=== PATIENT | male | born 1950 | race Caucasian/White ===

== ENCOUNTER 2025-05-02 13:09 | Emergency (ER) | payer MEDICARE, OTHER ==
[2025-05-02 14:17] LABS: Platelet Count 78 10x3/uL (150-450)
[2025-05-02 14:18] LABS: #Basophils 0.03 10x3/uL (0.0-0.2); #Eosinophils Less than 0.03 10x3/uL (0.0-0.5); #Monocytes 0.38 10x3/uL (0.0-1.1); #Neutrophils 10.96 10x3/uL (1.5-8.4); %Basophils 0.2 % (0.0-2.0); %Eosinophils 0.0 % (0.0-6.0); %Lymphocytes 5.1 % (18.0-47.0); %Monocytes 3.2 % (0.0-10.0); %Neutrophils 91.1 % (40.0-75.0); Hematocrit 35.6 % (38.8-50.0); Hemoglobin 11.3 g/dL (13.5-17.5); Mean Corpuscular Hemoglobin 32.0 pg (27.0-33.0); Mean Corpuscular Volume 100.8 fL (81.2-95.1); Red Blood Cell (RBC) Count 3.53 10x6/uL (4.32-5.72); White Blood Cell (WBC) Count 12.03 10x3/uL (3.5-10.5)
[2025-05-02 14:23] LABS: ALT (SGPT) 15 U/L (Less than 45); AST (SGOT) 29 U/L (11-34); Albumin 4.0 g/dL (3.1-4.5); Alkaline Phosphatase 50 U/L (40-110); Anion Gap 12 mmol/L (10-20); BUN (Urea Nitrogen) 9 mg/dL (8.4-25.7); Bilirubin, Total 0.6 mg/dL (0.3-1.2); Calc. Creatinine Clearance 0 mL/min (70-130); Calcium 8.8 mg/dL (7.8-10.44); Carbon Dioxide 32 mmol/L (23-31); Chloride 103 mmol/L (98-107); Globulin 2.7 g/dL (2.4-3.5); Glucose 140 mg/dL (83-110); Potassium 3.6 mmol/L (3.5-5.1); Sodium 143 mmol/L (136-145)
[2025-05-02 14:55] LABS: Anisocytosis SLIGHT = 6-15 cells (100X) (0-5/hpf); Giant Platelets SLIGHT HPF (0-5); MDiff Complete? YES; Macrocytosis SLIGHT = 6-15 cells (100X) (0-5/hpf); Platelet Adequacy Comment Appears Decreased
== END 2025-05-02 15:15 | disposition home or self-care (01) ==
LOC: CSHERS 13:09
DX: J44.1 Chronic obstructive pulmonary disease with (acute) exacerbation (principal); I10 Essential (primary) hypertension; E11.9 Type 2 diabetes mellitus without complications; E78.5 Hyperlipidemia, unspecified; F17.210 Nicotine dependence, cigarettes, uncomplicated; F17.290 Nicotine dependence, other tobacco product, uncomplicated; Z79.899 Other long term (current) drug therapy; Z79.51 Long term (current) use of inhaled steroids; Z79.82 Long term (current) use of aspirin; Z79.84 Long term (current) use of oral hypoglycemic drugs
CPT/HCPCS: 36415; 71045; 80053; 83880; 85025; 87426; 93005; J7620

== ENCOUNTER 2025-05-03 12:08 | Inpatient (IN) | payer MEDICARE ==
[2025-05-03] MEDS ORDERED: Iopamidol 300 61% 100 ML VIAL FS ONE (12:17)
[2025-05-03 13:25] LABS: Hematocrit 35.8 % (38.8-50.0); Hemoglobin 11.9 g/dL (13.5-17.5); Mean Corpuscular Hemoglobin 32.5 pg (27.0-33.0); Mean Corpuscular Volume 97.8 fL (81.2-95.1); Platelet Count 83 10x3/uL (150-450); Red Blood Cell (RBC) Count 3.66 10x6/uL (4.32-5.72); White Blood Cell (WBC) Count 14.81 10x3/uL (3.5-10.5)
[2025-05-03 13:33] LABS: ALT (SGPT) 18 U/L (Less than 45); AST (SGOT) 42 U/L (11-34); Albumin 4.2 g/dL (3.1-4.5); Alkaline Phosphatase 46 U/L (40-110); Anion Gap 11 mmol/L (10-20); BUN (Urea Nitrogen) 14 mg/dL (8.4-25.7); Bilirubin, Total 0.7 mg/dL (0.3-1.2); Calc. Creatinine Clearance 0 mL/min (70-130); Calcium 9.3 mg/dL (7.8-10.44); Carbon Dioxide 31 mmol/L (23-31); Chloride 99 mmol/L (98-107); Globulin 2.4 g/dL (2.4-3.5); Glucose 93 mg/dL (83-110); Potassium 3.8 mmol/L (3.5-5.1); Sodium 137 mmol/L (136-145)
[2025-05-03 13:47] LABS: Troponin I 4.179 ng/mL (< 0.028)
[2025-05-03] MEDS ORDERED: Enoxaparin 80 MG (0.8 mL) SYRINGE ONE (13:57)
[2025-05-03] MEDS ORDERED: Aspirin Chewable 81 MG TAB ONE (13:57)
[2025-05-03 14:05] LABS: INR-International Normal Ratio 1.1; PTT 32.5 sec (22.0-33.0); Prothrombin Time 12.0 sec (9.5-12.1)
[2025-05-03 14:43] LABS: MDiff Complete? YES; RBC Morphology Within Normal Limits
[2025-05-03 14:46] LABS: Platelet Adequacy Comment Appears Adequate
[2025-05-03 16:34] VITALS: BMI 23.0
[2025-05-03] MEDS ORDERED: Senokot S 8.6-50 MG TAB PO PRN (16:38)
[2025-05-03] MEDS ORDERED: Dextrose 50% Abboject 50 ML SYRINGE SLOW IVP PRN (16:38)
[2025-05-03] MEDS ORDERED: Acetaminophen 325 MG TAB PO PRN (16:38)
[2025-05-03] MEDS ORDERED: Ondansetron PF 4 MG/2 ML Vial IVP PRN (16:38)
[2025-05-03] MEDS ORDERED: Glucagon 1 MG/ML KIT IM PRN (16:38)
[2025-05-03] MEDS ORDERED: Electrolyte Replacement Protocol 1 EACH FS PRN (16:45)
[2025-05-03 17:20] LABS: Magnesium 2.1 mg/dL (1.6-2.6)
[2025-05-03 17:55] LABS: Troponin I 3.636 ng/mL (< 0.028)
[2025-05-03] MEDS: Furosemide 20 MG (2 mL) VIAL SLOW IVP SCH (18:16)
[2025-05-03] MEDS: LevoFLOXacin 750 mg/D5W 150 ml Premix Bag ONE (18:17)
[2025-05-03] MEDS: LevoFLOXacin 750 mg/D5W 750 MG in Premix 1 BAG IVPB SCH (18:19)
[2025-05-03 19:20] LABS: Cocaine Metabolite Screen Negative (Negative); THC/Cannabinoid Screen PRELIM POSITIVE (Negative); Tricyclic Screen Negative (Negative)
[2025-05-03] MEDS: Mometasone 200 MCG/Formoterol 5 MCG 60 PUFF INHALER INH SCH (19:29)
[2025-05-03 19:44] LABS: Troponin I 3.649 ng/mL (< 0.028)
[2025-05-03] MEDS: Famotidine 20 MG TAB PO SCH (20:17)
[2025-05-04] MEDS: Enoxaparin 80 MG (0.8 mL) SYRINGE SC SCH (02:49)
[2025-05-04 03:31] LABS: Hematocrit 32.9 % (38.8-50.0); Hemoglobin 10.9 g/dL (13.5-17.5); Mean Corpuscular Hemoglobin 31.8 pg (27.0-33.0); Mean Corpuscular Volume 95.9 fL (81.2-95.1); Platelet Count 76 10x3/uL (150-450); Red Blood Cell (RBC) Count 3.43 10x6/uL (4.32-5.72); White Blood Cell (WBC) Count 10.33 10x3/uL (3.5-10.5)
[2025-05-04 03:46] LABS: Anisocytosis SLIGHT = 6-15 cells (100X) (0-5/hpf); MDiff Complete? YES; Macrocytosis SLIGHT = 6-15 cells (100X) (0-5/hpf); Ovalocytes SLIGHT = 2-5 cells (100X) (0-1/hpf); Platelet Adequacy Comment Appears Decreased; Poikilocytosis SLIGHT = 6-15 cells (100X) (0-5/hpf)
[2025-05-04 03:49] LABS: ALT (SGPT) 16 U/L (Less than 45); AST (SGOT) 37 U/L (11-34); Albumin 3.8 g/dL (3.1-4.5); Alkaline Phosphatase 39 U/L (40-110); Anion Gap 13 mmol/L (10-20); BUN (Urea Nitrogen) 18 mg/dL (8.4-25.7); Bilirubin, Total 0.6 mg/dL (0.3-1.2); Calc. Creatinine Clearance 71 mL/min (70-130); Calcium 8.8 mg/dL (7.8-10.44); Carbon Dioxide 28 mmol/L (23-31); Chloride 100 mmol/L (98-107); Globulin 2.5 g/dL (2.4-3.5); Glucose 101 mg/dL (83-110); Magnesium 2.2 mg/dL (1.6-2.6); Potassium 3.4 mmol/L (3.5-5.1); Sodium 138 mmol/L (136-145)
[2025-05-04] MEDS: Furosemide 20 MG (2 mL) VIAL SLOW IVP SCH (06:06)
[2025-05-04] MEDS: Multivit, Therapeutic 1 TAB PO SCH (08:35)
[2025-05-04] MEDS: Folic Acid 1 MG TAB PO SCH (08:35)
[2025-05-04] MEDS: Aspirin 81 mg Enteric Coated Tablet PO SCH (08:35)
[2025-05-04] MEDS: Cyanocobalamin (Vitamin B-12) 1,000 MCG TAB PO SCH (08:35)
[2025-05-04] MEDS: ALPRAZolam 0.25 MG TAB PO PRN (10:52)
[2025-05-04] MEDS: Metoprolol Succinate XL 50 MG ER.TAB PO SCH (10:52)
[2025-05-04] MEDS: Losartan 50 MG TAB PO SCH (10:53)
[2025-05-04] MEDS: QUEtiapine 25 MG TAB PO SCH ×2 (10:53→20:41)
[2025-05-04] MEDS: Ipratropium Bromide 2.5 ml Neb NEB SCH (14:30)
[2025-05-05] MEDS ORDERED: Lidocaine 1% (PF) 30 ML VIAL ONE (06:51)
[2025-05-05] MEDS ORDERED: Heparin 10,000 UNITS/ 10 ML VIAL ONE (06:51)
[2025-05-05] MEDS ORDERED: PHENYLEPHRINE-NS 100 MCG/ML 10 ML SYRINGE ONE (06:51)
[2025-05-05] MEDS: glipiZIDE XL 2.5 mg ER.TAB PO SCH (07:34)
[2025-05-05] MEDS: Cholecalciferol 1,000 UNITS (25 MCG) TAB PO SCH (07:55)
[2025-05-05] MEDS: Aspirin 81 mg Enteric Coated Tablet PO SCH (07:55)
[2025-05-05] MEDS: Metoprolol Succinate XL 50 MG ER.TAB PO SCH (07:56)
[2025-05-05] MEDS: Pantoprazole 40 MG DR.TAB PO SCH (07:56)
[2025-05-05] MEDS: Thiamine 100 MG TAB PO SCH (07:56)
[2025-05-05] MEDS: Cyanocobalamin (Vitamin B-12) 1,000 MCG TAB PO SCH (07:56)
[2025-05-05] MEDS: Folic Acid 1 MG TAB PO SCH (07:56)
[2025-05-05] MEDS: Losartan 50 MG TAB PO SCH (07:56)
[2025-05-05] MEDS: Multivit, Therapeutic 1 TAB PO SCH (07:56)
[2025-05-05] MEDS: Senokot S 8.6-50 MG TAB PO SCH (07:57)
[2025-05-05] MEDS ORDERED: Non-Formulary Medication 1 EACH (Tiotropium [Spiriva Handihaler] 18 MCG Box) INH SCH (09:00)
[2025-05-05] MEDS ORDERED: Iopamidol 300 61% 100 ML VIAL FS ONE (12:45)
[2025-05-06 00:42] VITALS: BP 115/56; TEMP 98.3
== END 2025-05-06 01:21 | disposition short-term general hospital (02) | DRG 280 ==
LOC: CSHERS 12:08 → CSHTELE 15:53
PROVIDERS: ADMIT Internal Medicine; ATTEND Internal Medicine
PROC: 4A023N8 Measurement of Cardiac Sampling and Pressure, Bilateral, Percutaneous Approach (ICD-10-PCS; principal; 2025-05-05)
PROC: B2151ZZ Fluoroscopy of Left Heart using Low Osmolar Contrast (ICD-10-PCS; 2025-05-05)
PROC: B2111ZZ Fluoroscopy of Multiple Coronary Arteries using Low Osmolar Contrast (ICD-10-PCS; 2025-05-05)
PROC: B41F1ZZ Fluoroscopy of Right Lower Extremity Arteries using Low Osmolar Contrast (ICD-10-PCS; 2025-05-05)
PROC: B3101ZZ Fluoroscopy of Thoracic Aorta using Low Osmolar Contrast (ICD-10-PCS; 2025-05-05)
PROC: B2121ZZ Fluoroscopy of Single Coronary Artery Bypass Graft using Low Osmolar Contrast (ICD-10-PCS; 2025-05-05)
PROC: B41G1ZZ Fluoroscopy of Left Lower Extremity Arteries using Low Osmolar Contrast (ICD-10-PCS; 2025-05-05)
PROC: 3E033XZ Introduction of Vasopressor into Peripheral Vein, Percutaneous Approach (ICD-10-PCS; 2025-05-05)
PROC: 3E03329 Introduction of Other Anti-infective into Peripheral Vein, Percutaneous Approach (ICD-10-PCS; 2025-05-05)
DX: I21.4 Non-ST elevation (NSTEMI) myocardial infarction (principal); J96.21 Acute and chronic respiratory failure with hypoxia; J44.1 Chronic obstructive pulmonary disease with (acute) exacerbation; I50.32 Chronic diastolic (congestive) heart failure; I35.2 Nonrheumatic aortic (valve) stenosis with insufficiency; E78.5 Hyperlipidemia, unspecified; D69.6 Thrombocytopenia, unspecified; E11.42 Type 2 diabetes mellitus with diabetic polyneuropathy; I35.0 Nonrheumatic aortic (valve) stenosis; F17.210 Nicotine dependence, cigarettes, uncomplicated; F17.290 Nicotine dependence, other tobacco product, uncomplicated; I11.0 Hypertensive heart disease with heart failure; I25.84 Coronary atherosclerosis due to calcified coronary lesion; E11.51 Type 2 diabetes mellitus with diabetic peripheral angiopathy without gangrene; I70.8 Atherosclerosis of other arteries; F41.9 Anxiety disorder, unspecified; I70.203 Unspecified atherosclerosis of native arteries of extremities, bilateral legs; I25.10 Atherosclerotic heart disease of native coronary artery without angina pectoris; Z88.5 Allergy status to narcotic agent; Z88.2 Allergy status to sulfonamides; Z79.899 Other long term (current) drug therapy; Z79.84 Long term (current) use of oral hypoglycemic drugs; Z79.51 Long term (current) use of inhaled steroids; Z95.1 Presence of aortocoronary bypass graft; Z95.2 Presence of prosthetic heart valve; Z79.82 Long term (current) use of aspirin; Z71.6 Tobacco abuse counseling
CPT/HCPCS: 36245; 36415; 36416; 71045; 71275; 75716; 80053; 80306; 83735; 83880; 84100; 84484; 85025; 85610; 85730; 93005; 93306; 93459; 93567; 93923; 94640; 94664; 94762; 96372; 97139; C1760; C1769; C1887; J0461; J1644; J1650; J1940; J1956; J2250; J2919; J3010; J7030; J7620; J7644; Q9967